=== PATIENT | female | born 1965 | race Caucasian/White ===

== ENCOUNTER 2023-06-17 15:56 | Inpatient (IN) | payer OTHER, MEDICAID ==
[~2023-06-17] VITALS: Ht 170.2 cm; Wt 75.4 kg
[2023-06-17 17:39] LABS: EOSINOPHILS % (AUTO) 0.1 % (1.0-6.0); HEMATOCRIT 38.7 % (36-46); HEMOGLOBIN 12.5 g/dL (12.0-16.0); LYMPHOCYTES # (AUTO) 0.7 K/uL (1.0-4.8); LYMPHOCYTES % (AUTO) 9.1 % (22.0-44.0); MEAN CORPUSCULAR HEMOGLOBIN 26.6 pg (26.0-34.0); MEAN CORPUSCULAR HGB CONC 32.3 G/dL (31.0-37.0); MEAN CORPUSCULAR VOLUME 83 fL (80-100); MONOCYTES # (AUTO) 0.4 K/uL (0.1-1.0); MONOCYTES % (AUTO) 4.7 % (2.0-9.0); NEUTROPHILS # (AUTO) 6.9 K/uL (1.8-7.7); NEUTROPHILS % (AUTO) 85.1 % (40.0-70.0); PLATELET COUNT (AUTO) 296 K/uL (150-450); RED BLOOD CELL COUNT(AUTO) 4.69 MIL/uL (4.00-5.20); RED CELL DISTRIBUTION WIDTH 16.1 % (11.5-14.5); WHITE BLOOD COUNT (AUTO) 8.1 K/uL (4.5-11.0)
[2023-06-17 17:48] LABS: ANION GAP 10 mmol/L (8-16); CALCIUM, TOTAL 9.9 mg/dL (8.8-10.5); CARBON DIOXIDE 28 mmol/L (22-29); CHLORIDE 103 mmol/L (98-107); CREATININE 0.66 mg/dL (0.60-1.30); GLOMERULAR FILTR. RATE CALC > 60 mL/min (>60); GLUCOSE,RANDOM 94 mg/dL (70-110); POTASSIUM 3.4 mmol/L (3.5-5.1); SODIUM SERUM 141 mmol/L (136-145); UREA NITROGEN, BLOOD 23 mg/dL (7-18)
[2023-06-17 17:54] LABS: ALANINE AMINOTRANSFERASE 21 U/L (12-78); ALBUMIN 4.2 g/dL (3.4-5.0); ALKALINE PHOSPHATASE 65 U/L (46-116); ASPARTATE AMINOTRANSFERASE 12 U/L (15-37); BILIRUBIN,TOTAL 0.5 mg/dL (0.1-1.0); TOTAL PROTEIN, SERUM 7.7 g/dL (6.4-8.2)
[2023-06-17 18:40] LABS: ALCOHOL, BLOOD (SERUM) < 3 mg/dL (0-10)
[2023-06-17] MEDS ORDERED: HydrOXYzine PAMOATE 50 MG CAPSULE PO PRN (19:45)
[2023-06-17] MEDS ORDERED: ZOLPIDEM TARTRATE 10 MG TABLET PO PRN (19:45)
[2023-06-17] MEDS ORDERED: LORazepam 2 MG TABLET PO PRN (19:45)
[2023-06-17] MEDS ORDERED: MAGNESIUM HYDROXIDE SUSPENSION 30 ML UDCUP PO PRN (19:45)
[2023-06-17] MEDS ORDERED: TUBERCULIN, PURIFIED PROTEIN DERIVATIVE 5 TU/0.1 ML SYRINGE ID ONE (19:45)
[2023-06-17] MEDS ORDERED: MAG HYDROX/ALUMINUM HYD/SIMETH ES 30 ML SUSPENSION UDCUP PO PRN (19:45)
[2023-06-17] MEDS ORDERED: GuaiFENesin/D-METHORPHAN [SUGAR-FREE] 200-20MG/10 ML SYRUP UDCUP PO PRN (19:45)
[2023-06-17] MEDS ORDERED: OLANZapine 5 MG RAPDIS TABLET PO PRN (19:45)
[2023-06-17] MEDS ORDERED: ACETAMINOPHEN 325 MG TABLET PO PRN (19:45)
[2023-06-17] MEDS ORDERED: LOPERAMIDE HCL 2 MG CAPSULE PO PRN (19:45)
[2023-06-17] MEDS ORDERED: PROMETHAZINE HCL 25 MG TABLET PO PRN (19:45)
[2023-06-17 20:34] LABS: COVID AG,FIA SOURCE NASAL SWAB
[2023-06-17 20:59] LABS: SARS-COV2 (COVID) ANTIGEN,FIA Negative (Negative)
[2023-06-17] MEDS: MELATONIN 5 MG TABLET PO SCH (21:21)
[2023-06-17] MEDS: THIAMINE 100 MG TABLET PO SCH (21:21)
[2023-06-17] MEDS: OLANZapine 5 MG RAPDIS TABLET PO SCH (21:22)
[2023-06-17] MEDS: INFLUENZA VIRUS VACCINE QVS 2023-24 (6MO+)/PF 60 MCG/0.5 ML SYRINGE IM. ONE (23:45)
[2023-06-18 08:18] VITALS: BP 110/65; PULSE 83; RESP 18; TEMP 98.4; O2SAT 98
[2023-06-18 08:22] LABS: HEMOGLOBIN A1C 5.2 % (3.8-5.6)
[2023-06-18 08:34] LABS: CHOL/HDL RATIO 1.7 (3.9-5.7); FREE T4 (FREE THYROXINE) 1.2 ng/dL (0.76-1.46); THYROID STIMULATING HORMONE 1.9 uIU/mL (0.36-3.74)
[2023-06-18] MEDS: NALTREXONE HCL 50 MG TABLET PO SCH (09:16)
[2023-06-18] MEDS: FLUoxetine HCL 20 MG CAPSULE PO SCH (09:16)
[2023-06-18] MEDS: MULTIVITAMINS WITH MINERALS, THERAPEUTIC TABLET PO SCH (09:16)
[2023-06-18] MEDS: FOLIC ACID 1 MG TABLET PO SCH (09:17)
[2023-06-18] MEDS: OMEGA-3/DHA/EPA/FISH OIL 1,000 MG CAPSULE PO SCH (09:18)
[2023-06-18 16:00] VITALS: BP 119/70; PULSE 96; RESP 18; TEMP 97.7; O2SAT 98
[2023-06-18] MEDS: OLANZapine 10 MG RAPDIS TABLET PO SCH (20:43)
[2023-06-18 21:05] VITALS: BP 124/68; PULSE 86; RESP 18; TEMP 97.8; O2SAT 98
[2023-06-19 08:25] VITALS: BP 140/77; PULSE 79; RESP 18; TEMP 97.9; O2SAT 98
[2023-06-19 12:17] VITALS: BP 140/77; PULSE 79; RESP 18; TEMP 97.9; O2SAT 98
[2023-06-19] MEDS ORDERED: QUEtiapine FUMARATE 100 MG TABLET PO PRN (15:45)
[2023-06-19 18:39] VITALS: BP 125/68; PULSE 96; RESP 20; TEMP 97.8; O2SAT 97
[2023-06-19 20:05] VITALS: BP 134/83; PULSE 104; RESP 21; TEMP 97.8; O2SAT 98
[2023-06-19] MEDS: QUEtiapine FUMARATE 200 MG TABLET PO SCH (20:44)
[2023-06-20 08:20] VITALS: BP 123/69; PULSE 100; RESP 18; TEMP 97.8; O2SAT 95
[2023-06-20] MEDS: QUEtiapine FUMARATE 25 MG TABLET PO SCH (09:03)
[2023-06-20] MEDS: PARoxetine HCL 20 MG TABLET PO SCH (09:04)
[2023-06-20] MEDS: QUEtiapine FUMARATE 300 MG TABLET PO SCH (20:18)
[2023-06-20 20:38] VITALS: BP 118/68; PULSE 84; RESP 17; TEMP 97.6; O2SAT 97
[2023-06-21 08:10] VITALS: BP 108/61; PULSE 78; RESP 18; TEMP 97.8; O2SAT 98
[2023-06-21] MEDS: PARoxetine HCL 20 MG TABLET PO SCH (08:35)
[2023-06-21] MEDS: QUEtiapine FUMARATE 25 MG TABLET PO SCH (08:39)
[2023-06-21 20:08] VITALS: BP 133/60; PULSE 77; RESP 18; TEMP 97.9; O2SAT 96
[2023-06-22 08:05] VITALS: BP 100/60; PULSE 95; RESP 18; TEMP 98; O2SAT 98
[2023-06-22 08:55] LABS: ANION GAP 6 mmol/L (8-16); CALCIUM, TOTAL 9.7 mg/dL (8.8-10.5); CARBON DIOXIDE 30 mmol/L (22-29); CHLORIDE 104 mmol/L (98-107); CREATININE 0.69 mg/dL (0.60-1.30); GLOMERULAR FILTR. RATE CALC > 60 mL/min (>60); GLUCOSE,RANDOM 99 mg/dL (70-110); POTASSIUM 3.7 mmol/L (3.5-5.1); SODIUM SERUM 140 mmol/L (136-145); UREA NITROGEN, BLOOD 34 mg/dL (7-18)
[2023-06-22 20:15] VITALS: BP 104/71; PULSE 86; RESP 18; TEMP 98; O2SAT 97
[2023-06-23 08:07] VITALS: BP 102/61; PULSE 98; RESP 18; TEMP 97.8; O2SAT 98
[2023-06-23 23:24] VITALS: BP 111/71; PULSE 78; RESP 18; TEMP 97; O2SAT 97
[2023-06-24 08:29] VITALS: BP 123/59; PULSE 82; RESP 18; TEMP 97.7; O2SAT 98
[2023-06-24 20:09] VITALS: BP 122/71; PULSE 81; RESP 18; TEMP 98.7; O2SAT 96
[2023-06-25 08:19] VITALS: BP 145/71; PULSE 76; RESP 18; TEMP 98.1; O2SAT 99
[2023-06-25] MEDS: BuPROPion HCL XL 150 MG ER TABLET PO SCH (08:36)
[2023-06-25] MEDS: PARoxetine HCL 20 MG TABLET PO SCH (08:36)
[2023-06-25] MEDS ORDERED: BUPR-49 PO (16:39)
[2023-06-25] MEDS ORDERED: OMEG-135 PO (16:39)
[2023-06-25] MEDS ORDERED: MELA5TAB40 PO (16:39)
[2023-06-25] MEDS ORDERED: PARO-37 PO (16:39)
[2023-06-25] MEDS ORDERED: QUET300T19 PO (16:39)
[2023-06-25] MEDS ORDERED: QUET25TA36 PO (16:39)
[2023-06-25 20:19] VITALS: BP 109/61; PULSE 81; RESP 16; TEMP 97.8; O2SAT 98
[2023-06-26 08:15] VITALS: BP 101/63; PULSE 92; RESP 17; TEMP 97.9; O2SAT 96
== END 2023-06-26 15:00 | disposition home or self-care (01) | DRG 885 ==
LOC: EMS 17:58 → B2S 20:32
PROVIDERS: ADMIT Psychiatry & Neurology Psychiatry; ATTEND Psychiatry & Neurology Psychiatry
PROC: GZHZZZZ Group Psychotherapy (ICD-10-PCS; principal; 2023-06-19)
PROC: GZ51ZZZ Individual Psychotherapy, Behavioral (ICD-10-PCS; 2023-06-19)
DX: F32.3 Major depressive disorder, single episode, severe with psychotic features (principal); R45.851 Suicidal ideations; Z59.00 Homelessness unspecified; D64.9 Anemia, unspecified; Z20.822 Contact with and (suspected) exposure to COVID-19; E87.6 Hypokalemia; Z88.6 Allergy status to analgesic agent; Z91.199 Patient's noncompliance with other medical treatment and regimen due to unspecified reason
CPT/HCPCS: 80048; 80053; 80061; 83036; 84439; 84443; 85025; 86592; 99285; G0480; Q9967